=== PATIENT | female | born 1975 | race Caucasian/White ===

== ENCOUNTER 2016-05-05 20:50 | Emergency (ER) | payer SELFPAY | END 2016-05-05 23:50 | disposition home or self-care (01) | LOC: ER1 20:50 | DX: M62.830 Muscle spasm of back (principal); N39.0 Urinary tract infection, site not specified; G35 Multiple sclerosis; F17.210 Nicotine dependence, cigarettes, uncomplicated; Z79.899 Other long term (current) drug therapy | CPT/HCPCS: 81001; 87077; 87086; 87186; 96372; 99283; J1100; J1885 ==